=== PATIENT | female | born 1980 | race Caucasian/White ===

== ENCOUNTER 2017-10-07 08:14 | Inpatient (IN) | payer OTHER ==
[~2017-10-07] VITALS: Ht 157.5 cm; Wt 56.8 kg
[2017-10-07] MEDS ORDERED: morphine 4 MG/ML inj SYRINge IV ONE (08:45)
[2017-10-07] MEDS ORDERED: ondansetron/PF 4mg/2ml inj IV ONE (08:45)
[2017-10-07] MEDS ORDERED: normal saline 1000ML IV soln IVB ONE ×2 (08:45→09:50)
[2017-10-07 08:53] LABS: BASOPHILS % (AUTO) 0 % (0-1); EOSINOPHILS # (AUTO) 0.1 X10'3 (0-0.9); EOSINOPHILS % (AUTO) 1.2 % (0-6); HEMATOCRIT 47.9 % (35.0-45.0); HEMOGLOBIN 16.4 g/dl (12.0-16.0); LYMPHOCYTES # (AUTO) 1.1 X10'3 (1.1-4.8); LYMPHOCYTES % (AUTO) 9.6 % (21-51); MEAN CORPUSCULAR HGB CONC 34.3 % (33.0-36.5); MEAN CORPUSCULAR VOLUME 93.2 FL (78-98); MEAN PLATELET VOLUME 8.8 FL (7.4-10.4); MONOCYTES # (AUTO) 0.3 X10'3 (0-0.9); MONOCYTES % (AUTO) 2.3 % (2-12); NEUTROPHILS # (AUTO) 9.9 X10'3 (1.8-7.7); NEUTROPHILS % (AUTO) 86.9 % (42-75); PLATELET COUNT 230 X10'3 (140-440); RED BLOOD COUNT 5.13 X10'6 (4.20-5.60); RED CELL DISTRIBUTION WIDTH 13.3 % (11.5-14.5); WHITE BLOOD COUNT 11.4 X10'3 (4.5-11.0)
[2017-10-07 09:00] LABS: URINE HCG NEGATIVE (NEG)
[2017-10-07 09:02] LABS: PROTHROMBIN TIME 10.1 SECONDS (9.0-12.0)
[2017-10-07 09:03] LABS: CLARITY,URINE TURBID (Clear); COLOR,URINE YELLOW (Yellow); GLUCOSE, URINE NEGATIVE (Neg); KETONES,URINE 15 mg/dl (Neg); LEUKOCYTE ESTERASE ,URINE NEGATIVE (Neg); NITRITES, URINE NEGATIVE (Neg); OCCULT BLOOD,URINE SMALL (Neg); PROTEIN,URINE 30 mg/dl (Neg)
[2017-10-07 09:05] LABS: UA COLLECTION TYPE CLN CATCH MIDSTREAM
[2017-10-07 09:08] LABS: ALANINE AMINOTRANSFERASE 76 U/L (12-78); ALBUMIN 3.6 G/DL (3.4-5.0); ALBUMIN/GLOBULIN RATIO 1.2 (1.1-1.5); ALKALINE PHOSPHATASE 45 IU/L (46-116); AMYLASE 23 U/L (25-115); ANION GAP 9 (8-16); ASPARTATE AMINO TRANSFERASE 42 U/L (10-37); BILIRUBIN,TOTAL 0.7 MG/DL (0.1-1.0); BLOOD UREA NITROGEN 12 MG/DL (7-18); BUN/CREATININE RATIO 15.2 (6.6-38.0); CALCIUM 8.3 MG/DL (8.5-10.1); CHLORIDE 105 MMOL/L (99-107); CREATININE 0.79 MG/DL (0.40-0.90); GLUCOSE 134 MG/DL (70-104); LIPASE 52 U/L (73-393); POTASSIUM 3.8 MMOL/L (3.5-5.1); SODIUM 141 MMOL/L (135-145); TOTAL CARBON DIOXIDE 27.5 MMOL/L (24-32); TOTAL PROTEIN 6.6 G/DL (6.4-8.2); eGFR 82 ML/MIN
[2017-10-07 09:13] LABS: MUCUS STRANDS MANY /LPF (Neg); SQUAMOUS EPITHELIAL CELL,UR MANY /LPF (FEW)
[2017-10-07 09:14] LABS: TRANSITIONAL EPI CELLS,URINE MODERATE /HPF
[2017-10-07 09:15] LABS: BACTERIA,URINE 3+ /HPF (Neg); RBC,URINE 0-2 /HPF (0-2); WBC,URINE 0-4 /HPF (0-4)
[2017-10-07 09:16] LABS: CAL OXALATE CRYSTALS 3+ /HPF (NEGATIVE)
[2017-10-07] MEDS ORDERED: NO HOME MEDS (09:34)
[2017-10-07] MEDS ORDERED: metroNIDAZOLE-Flagyl 500mg/NS 100 ML IV STA (12:03)
[2017-10-07] MEDS ORDERED: normal saline 1000ML IV soln IV ONE (12:05)
[2017-10-07] MEDS ORDERED: ciprofloxacin lact 400MG/200ML 200 ML IV ONE (12:15)
[2017-10-07] MEDS ORDERED: HYDROcodone/acetaminophen 10/325mg tab PO PRN (13:15)
[2017-10-07] MEDS ORDERED: metoclopramide 5 mg/ml inj IV PRN (13:15)
[2017-10-07] MEDS ORDERED: morphine 4 MG/ML inj SYRINge IV PRN (13:15)
[2017-10-07] MEDS ORDERED: acetaminophen 325mg tablet PO PRN ×2 (13:15)
[2017-10-07] MEDS ORDERED: mag hydrox/Alum hydrox/simeth 30ml oral suspension PO PRN (13:15)
[2017-10-07] MEDS: normal saline 1000ml 1,000 ML IV SCH ×2 (13:41→18:55)
[2017-10-07] MEDS: metroNIDAZOLE-Flagyl 500mg/NS 100 ML IV SCH ×2 (16:27→23:27)
[2017-10-07] MEDS: ondansetron/PF 4mg/2ml inj IV PRN (16:31)
[2017-10-07 18:30] VITALS: BP 99/62
[2017-10-07] MEDS: morphine 4 MG/ML inj SYRINge IV PRN (20:39)
[2017-10-07] MEDS: ciprofloxacin lact 400MG/200ML 200 ML IV SCH (20:42)
[2017-10-07] MEDS ORDERED: temazepam 15mg capsule PO PRN (21:00)
[2017-10-08] VITALS: BP 108/58
[2017-10-08] MEDS: morphine 4 MG/ML inj SYRINge IV PRN (01:38)
[2017-10-08 04:35] LABS: BASOPHILS % (AUTO) 0.1 % (0-1); EOSINOPHILS # (AUTO) 0.5 X10'3 (0-0.9); EOSINOPHILS % (AUTO) 4.6 % (0-6); HEMATOCRIT 34.6 % (35.0-45.0); HEMOGLOBIN 11.8 g/dl (12.0-16.0); LYMPHOCYTES # (AUTO) 1.2 X10'3 (1.1-4.8); LYMPHOCYTES % (AUTO) 10.6 % (21-51); MEAN CORPUSCULAR HEMOGLOBIN 32.1 PG (27.0-31.0); MEAN CORPUSCULAR HGB CONC 34.1 % (33.0-36.5); MEAN CORPUSCULAR VOLUME 94.2 FL (78-98); MONOCYTES # (AUTO) 0.8 X10'3 (0-0.9); MONOCYTES % (AUTO) 6.6 % (2-12); NEUTROPHILS # (AUTO) 8.9 X10'3 (1.8-7.7); NEUTROPHILS % (AUTO) 78.1 % (42-75); PLATELET COUNT 173 X10'3 (140-440); RED BLOOD COUNT 3.67 X10'6 (4.20-5.60); RED CELL DISTRIBUTION WIDTH 13.2 % (11.5-14.5); WHITE BLOOD COUNT 11.4 X10'3 (4.5-11.0)
[2017-10-08 04:50] LABS: ALBUMIN 2.2 G/DL (3.4-5.0); ANION GAP 7 (8-16); BLOOD UREA NITROGEN 9 MG/DL (7-18); BUN/CREATININE RATIO 13.6 (6.6-38.0); CALCIUM 6.9 MG/DL (8.5-10.1); CHLORIDE 110 MMOL/L (99-107); CREATININE 0.66 MG/DL (0.40-0.90); GLUCOSE 108 MG/DL (70-104); POTASSIUM 3.7 MMOL/L (3.5-5.1); SODIUM 142 MMOL/L (135-145); TOTAL CARBON DIOXIDE 24.6 MMOL/L (24-32); eGFR > 90 ML/MIN
[2017-10-08 07:03] VITALS: BP 95/51
[2017-10-08] MEDS: metroNIDAZOLE-Flagyl 500mg/NS 100 ML IV SCH ×3 (07:23→23:41)
[2017-10-08] MEDS: normal saline 1000ml 1,000 ML IV SCH ×2 (07:28→18:46)
[2017-10-08 08:58] LABS: C DIFF ANTIGEN NEGATIVE (NEGATIVE); C DIFF SPECIMEN=DIARRHEA? ACCEPTABLE; C DIFFICILE TOXINS A&B NEGATIVE (Neg)
[2017-10-08] MEDS: ciprofloxacin lact 400MG/200ML 200 ML IV SCH ×2 (09:17→19:51)
[2017-10-08 11:31] VITALS: BP 103/62
[2017-10-08] MEDS: dicyclomine 10 MG capsule PO PRN ×2 (11:55→18:43)
[2017-10-08] MEDS: HYDROcodone/acetaminophen 5mg/325mg tablet PO PRN ×3 (12:53→23:40)
[2017-10-08 20:00] VITALS: BP 107/61
[2017-10-09] VITALS: BP 102/58
[2017-10-09 04:46] LABS: ALBUMIN 2.2 G/DL (3.4-5.0); ANION GAP 8 (8-16); BLOOD UREA NITROGEN 6 MG/DL (7-18); BUN/CREATININE RATIO 10.2 (6.6-38.0); CALCIUM 7.6 MG/DL (8.5-10.1); CHLORIDE 109 MMOL/L (99-107); CREATININE 0.59 MG/DL (0.40-0.90); GLUCOSE 97 MG/DL (70-104); POTASSIUM 4.1 MMOL/L (3.5-5.1); SODIUM 140 MMOL/L (135-145); TOTAL CARBON DIOXIDE 22.7 MMOL/L (24-32); eGFR > 90 ML/MIN
[2017-10-09 05:06] LABS: BASOPHILS % (AUTO) 0.3 % (0-1); EOSINOPHILS # (AUTO) 0.3 X10'3 (0-0.9); EOSINOPHILS % (AUTO) 5.6 % (0-6); HEMATOCRIT 32.1 % (35.0-45.0); HEMOGLOBIN 11.1 g/dl (12.0-16.0); LYMPHOCYTES # (AUTO) 1.3 X10'3 (1.1-4.8); LYMPHOCYTES % (AUTO) 23.4 % (21-51); MEAN CORPUSCULAR HEMOGLOBIN 32.3 PG (27.0-31.0); MEAN CORPUSCULAR HGB CONC 34.7 % (33.0-36.5); MEAN CORPUSCULAR VOLUME 93.1 FL (78-98); MEAN PLATELET VOLUME 9.6 FL (7.4-10.4); MONOCYTES # (AUTO) 0.6 X10'3 (0-0.9); NEUTROPHILS # (AUTO) 3.4 X10'3 (1.8-7.7); NEUTROPHILS % (AUTO) 60.7 % (42-75); PLATELET COUNT 127 X10'3 (140-440); RED BLOOD COUNT 3.45 X10'6 (4.20-5.60); RED CELL DISTRIBUTION WIDTH 13.1 % (11.5-14.5); WHITE BLOOD COUNT 5.7 X10'3 (4.5-11.0)
[2017-10-09] MEDS: normal saline 1000ml 1,000 ML IV SCH ×2 (05:14→09:37)
[2017-10-09 07:29] VITALS: BP 103/65
[2017-10-09] MEDS: metroNIDAZOLE-Flagyl 500mg/NS 100 ML IV SCH ×3 (08:20→16:37)
[2017-10-09] MEDS: ciprofloxacin lact 400MG/200ML 200 ML IV SCH ×2 (09:37→20:48)
[2017-10-09] MEDS ORDERED: pantoprazole 40 MG vial IV ONE (11:05)
[2017-10-09 12:00] VITALS: BP 119/78
[2017-10-09 12:03] LABS: LIPASE < 50 U/L (73-393)
[2017-10-09] MEDS: ondansetron/PF 4mg/2ml inj IV PRN (12:07)
[2017-10-09] MEDS: dicyclomine 10 MG capsule PO PRN ×2 (14:49→22:29)
[2017-10-09] MEDS: diatr meglu/diatrizoate 30ml oral sol.-(3 dose) bottle PO SCH ×3 (14:52→19:47)
[2017-10-09 15:45] LABS: CRYPTOSPORIDIUM AG NEGATIVE (Neg); GIARDIA LAMBLIA AG NEGATIVE (Neg)
[2017-10-09] MEDS ORDERED: iohexol 300mg/ml 100ml inj. ONE (17:45)
[2017-10-09 20:00] VITALS: BP 111/67
[2017-10-09] MEDS: lactobacillus rhamnosus 10,000 MMU CELLS/CAPSULE PO SCH (20:47)
[2017-10-09] MEDS ORDERED: diatr meglu/diatrizoate 30ml oral sol.-(3 dose) bottle PO SCH (21:00)
[2017-10-10] VITALS: BP 113/66
[2017-10-10] MEDS: metroNIDAZOLE-Flagyl 500mg/NS 100 ML IV SCH ×2 (00:21→08:00)
[2017-10-10] MEDS: normal saline 1000ml 1,000 ML IV SCH ×2 (01:14→11:14)
[2017-10-10 05:11] LABS: BASOPHILS % (AUTO) 0.5 % (0-1); EOSINOPHILS # (AUTO) 0.3 X10'3 (0-0.9); EOSINOPHILS % (AUTO) 6.8 % (0-6); HEMATOCRIT 32.2 % (35.0-45.0); HEMOGLOBIN 10.9 g/dl (12.0-16.0); LYMPHOCYTES # (AUTO) 1.3 X10'3 (1.1-4.8); LYMPHOCYTES % (AUTO) 33.2 % (21-51); MEAN CORPUSCULAR HEMOGLOBIN 31.7 PG (27.0-31.0); MEAN CORPUSCULAR HGB CONC 33.8 % (33.0-36.5); MEAN CORPUSCULAR VOLUME 93.9 FL (78-98); MEAN PLATELET VOLUME 9.1 FL (7.4-10.4); MONOCYTES # (AUTO) 0.5 X10'3 (0-0.9); MONOCYTES % (AUTO) 12.9 % (2-12); NEUTROPHILS # (AUTO) 1.8 X10'3 (1.8-7.7); NEUTROPHILS % (AUTO) 46.6 % (42-75); PLATELET COUNT 167 X10'3 (140-440); RED BLOOD COUNT 3.43 X10'6 (4.20-5.60); RED CELL DISTRIBUTION WIDTH 13.2 % (11.5-14.5); WHITE BLOOD COUNT 3.8 X10'3 (4.5-11.0)
[2017-10-10 05:17] LABS: ALBUMIN 2.4 G/DL (3.4-5.0); ANION GAP 9 (8-16); BLOOD UREA NITROGEN 5 MG/DL (7-18); BUN/CREATININE RATIO 7.5 (6.6-38.0); CHLORIDE 109 MMOL/L (99-107); CREATININE 0.67 MG/DL (0.40-0.90); GLUCOSE 92 MG/DL (70-104); POTASSIUM 3.3 MMOL/L (3.5-5.1); SODIUM 142 MMOL/L (135-145); TOTAL CARBON DIOXIDE 23.6 MMOL/L (24-32); eGFR > 90 ML/MIN
[2017-10-10 07:16] VITALS: BP 116/73
[2017-10-10] MEDS: lactobacillus rhamnosus 10,000 MMU CELLS/CAPSULE PO SCH (08:00)
[2017-10-10] MEDS ORDERED: pantoprazole 40 MG vial IV SCH (08:00)
[2017-10-10] MEDS: ciprofloxacin lact 400MG/200ML 200 ML IV SCH (09:23)
[2017-10-10] MEDS ORDERED: CIPR-230 PO (11:46)
[2017-10-10] MEDS ORDERED: ONDA4TAB9 PO (11:46)
== END 2017-10-10 12:31 | disposition home or self-care (01) | DRG 392 ==
LOC: ER 08:14 → ED HOLD 13:14 → SUR 3N 18:00 → OBSVTOIN 10-08 10:38
PROVIDERS: ADMIT Hospitalist; ATTEND Family Medicine
PROC: BW211ZZ Computerized Tomography (CT Scan) of Abdomen and Pelvis using Low Osmolar Contrast (ICD-10-PCS; principal; 2017-10-09)
DX: A09 Infectious gastroenteritis and colitis, unspecified (principal); N83.202 Unspecified ovarian cyst, left side; E86.0 Dehydration; I95.9 Hypotension, unspecified
CPT/HCPCS: 36415; 71045; 74176; 74177; 76856; 80048; 80053; 81001; 81025; 82150; 83605; 83690; 84145; 85025; 85610; 87040; 87045; 87046; 87070; 87077; 87186; 87324; 87328; 87329; 87336; 87449; 89055; 96361; 96365; 96367; 96375; 99285; C9113; G0378; J0744; J2270; J2405; J2765; J3490; J7030; Q9963; Q9967